=== PATIENT | female | born 1985 | race Hispanic/Latino ===

== ENCOUNTER 2020-01-05 15:29 | Emergency (ER) | payer SELFPAY ==
[2020-01-05] MEDS ORDERED: diphenhydrAMINE 50 MG/ML VIAL ONE (15:59)
[2020-01-05] MEDS ORDERED: Metoclopramide HCl 10 MG/2 ML VIAL ONE (15:59)
[2020-01-05] MEDS ORDERED: Acetaminophen 500 MG TAB ONE (15:59)
--- NOTE | 2020-01-05 16:04 | CT ---
CT HEAD WITHOUT IV CONTRAST COMPARISON: None HISTORY: Level 2 stroke. Headache which started at 11:00 AM. Paresthesias in bilateral hands. TECHNIQUE: Axial CT imaging at 5 mm intervals from vertex through skull base without contrast FINDINGS: There is no evidence of an acute infarction, hemorrhage, mass effect, or midline shift. The ventricul ar system is normal in size, shape, and position. Mucosal thickening is present in each maxillary antrum with mucous retention cyst left maxillary antr um. Visualized mastoid air cells are clear. Osseous structures appear intact. IMPRESSION: 1. No acute intracranial abnormality demonstrated. MRI would be more sensitive study of choice for ev aluation of an acute infarction.
[2020-01-05] MEDS ORDERED: Ondansetron PF 4 MG/2 ML Vial ONE (16:13)
[2020-01-05 17:18] LABS: #Basophils 0.1 thou/uL (0.0-0.2); #Eosinphils 0.1 thou/uL (0.0-0.7); #Lymphocytes 2.7 thou/uL (1.20-3.40); #Monocytes 0.7 thou/uL (0.11-0.59); #Neutrophils 8.7 thou/uL (1.40-6.50); %Basophils 0.6 % (0.0-1.0); %Eosinophils 1.1 % (0.0-10.0); %Lymphocytes 21.7 % (21.0-51.0); %Monocytes 5.3 % (0.0-10.0); %Neutrophils 71.2 % (42.0-75.0); Hemoglobin 13.3 g/dL (12.0-16.0); Mean Corpuscular HGB CONC 33.2 g/dL (32.0-36.0); Mean Corpuscular Hemoglobin 30.7 pg (27.0-31.0); Mean Corpuscular Volume 92.3 fL (78.0-98.0); Mean Platelet Volume 7.4 fL (7.4-10.4); Platelet Count 391 thou/uL (130-400); RBC Distribution Width 11.8 % (11.5-14.5); Red Blood Cell (RBC) Count 4.35 mill/uL (4.20-5.40); White Blood Cell (WBC) Count 12.3 thou/uL (4.8-10.8)
[2020-01-05 17:45] LABS: ALT (SGPT) 18 U/L (8-55); AST (SGOT) 11 U/L (5-34); Albumin 4.2 g/dL (3.5-5.0); Alkaline Phosphatase 77 U/L (40-110); Anion Gap 16 mmol/L (10-20); BUN (Urea Nitrogen) 7 mg/dL (7.0-18.7); Bilirubin, Total 0.5 mg/dL (0.2-1.2); Calc. Creatinine Clearance 0 mL/min (70-130); Calcium 9.7 mg/dL (7.8-10.44); Carbon Dioxide 19 mmol/L (22-29); Chloride 104 mmol/L (98-107); Estimated GFR-MDRD Greater than 90; Globulin 3.3 g/dL (2.4-3.5); Glucose 83 mg/dL (70-105); Potassium 3.4 mmol/L (3.5-5.1); Protein, Total 7.5 g/dL (6.0-8.3); Sodium 136 mmol/L (136-145)
[2020-01-05] MEDS ORDERED: Magnesium 2 GM/50 ML BAG (IN WATER) ONE (18:15)
--- NOTE | 2020-01-05 19:16 | ULT ---
PELVIC ULTRASOUND: History: female with pain. Technique: Multiplanar grayscale and color doppler images were obtained in a transabdominal pelvic ul trasound. Spectral analysis and doppler wave form of the right ovary was performed. FINDINGS: There is a single live intrauterine with heart rate of 162 beats/minute. There is a p ole and yolk sac. [place] rump length is 1.48 cm with estimated gestational age of 7 weeks 6 days. There is a small hyperechoic region adjacent to the gestational sac which likely is a small subchorio eulalio hemorrhage. The right ovary is normal in size and shows normal flow. The left ovary was not visua lized. No free fluid is seen in the pelvis. IMPRESSION: 1. Single live intrauterine with estimated age of 7 weeks 6 days. 2. Possible small subchorionic hemorrhage. POS: EAA
--- NOTE | 2020-01-08 16:18 | EKG ---
Test Reason : Blood Pressure : / mmHG Vent. Rate : 071 BPM Atrial Rate : 075 BPM P-R Int : 000 ms QRS Dur : 084 ms QT Int : 408 ms P-R-T Axes : 000 019 016 degrees QTc Int : 443 ms Normal sinus rhythm Normal ECG Confirmed by TERRA DOOLEY DO ([id number]), medical transcription editor KENDRA EDWARDS ([id number] on 01/08/2020 4:17:45 PM Referred By: Confirmed By:TERRA DOOLEY DO
== END 2020-01-05 19:10 | disposition home or self-care (01) ==
LOC: ERS 15:29
DX: O20.8 Other hemorrhage in early pregnancy (principal); O99.89 Other specified diseases and conditions complicating pregnancy, childbirth and the puerperium; R51 Headache; Z3A.01 Less than 8 weeks gestation of pregnancy
CPT/HCPCS: 36415; 36416; 70450; 76856; 80053; 84702; 85025; 86900; 86901; 93005; 93976; 96365; 96366; 96367; 96375; J1200; J2405; J2765; J3475

== ENCOUNTER 2020-08-04 18:52 | Day surgery (SDC) | payer MEDICAID, OTHER ==
[2020-08-04 19:43] VITALS: BP 139/79; TEMP 98.5; BMI 40.1
[2020-08-04] MEDS ORDERED: hydrALAZINE 20 MG/ML VIAL SLOW IVP PRN (19:52)
--- NOTE | 2020-08-05 02:06 | SS ---
DATE OF ADMISSION: 08/04/2020 DATE OF DISCHARGE: 08/04/2020 Labor and Delivery Triage Note. REGULAR PHYSICIAN: Bk Daily MD. EVALUATING PHYSICIAN: Morales Briscoe MD. CHIEF COMPLAINT: Irregular contractions. HISTORY OF PRESENT ILLNESS: Ms. Tracey is a 34-year-old , G3, P2, with an estimated date of confinement of 08/12/2020, who presents complaining of contractions every 15 minutes since earlier today. She states that she was in Dr. Carranza's office this afternoon and her membranes were stripped by a nurse there in the office in Dr. Carranza's absence. She denies associated ruptured membranes. PAST OBSTETRICAL HISTORY: Two vaginal deliveries, one at 34 weeks and one at 37 weeks. PAST MEDICAL HISTORY: None. PAST SURGICAL HISTORY: None. CURRENT MEDICATIONS: vitamins. ALLERGIES: NO KNOWN ALLERGIES. SOCIAL HISTORY: Denies tobacco, alcohol, or drug use. FAMILY HISTORY: Unremarkable. REVIEW OF SYSTEMS: Denies nausea, vomiting, fever, chills, or ruptured membranes. PHYSICAL EXAMINATION: VITAL SIGNS: In triage, her vital signs are stable. She is afebrile. GENERAL: She is in no distress. ABDOMEN: Soft, nontender, and gravid. PELVIC: Pelvic exam by the labor nurse shows the cervix to be 4 cm dilated, 50% effaced with the vertex high at -3. heart rate tracing is stable with spontaneous accelerations. There are no decelerations. Only an occasional contraction seen. The patient is allowed to walk and returns. At that time, her cervical exam is unchanged. ASSESSMENT: 1. Term intrauterine . 2. No evidence of active labor. PLAN: The patient will be dismissed to home. Labor precautions were reviewed with her in detail. The patient [place] close by in the local area and will return here if her contractions become more frequent. Job ID: [id number] MTDD
== END 2020-08-04 21:20 | disposition home or self-care (01) ==
LOC: L&D/OP 18:52
PROVIDERS: ATTEND Obstetrics & Gynecology
DX: O47.9 False labor, unspecified (principal); Z3A.00 Weeks of gestation of pregnancy not specified
CPT/HCPCS: 99283

== ENCOUNTER 2020-08-05 09:21 | Inpatient (IN) | payer MEDICAID, OTHER ==
[2020-08-05] MEDS ORDERED: hydrALAZINE 20 MG/ML VIAL SLOW IVP PRN ×2 (09:28→16:10)
[2020-08-05] MEDS ORDERED: NS / Oxytocin 40 units/1000ml 1,000 ML IV PRN (09:28)
[2020-08-05] MEDS ORDERED: HYDROcodone/Acetaminophen 5/325 mg Tablet PO PRN ×4 (09:28→16:10)
[2020-08-05] MEDS ORDERED: Lidocaine 1% (PF) 30 ML VIAL SC PRN (09:28)
[2020-08-05] MEDS ORDERED: Docusate 100 MG CAP PO PRN (09:28)
[2020-08-05] MEDS ORDERED: Butorphanol Tartrate 1 MG/ML VIAL SLOW IVP PRN (09:28)
[2020-08-05] MEDS ORDERED: Ondansetron PF 4 MG/2 ML Vial IVP PRN ×2 (09:28→16:10)
[2020-08-05] MEDS ORDERED: Ibuprofen 800 MG TAB PO PRN (09:28)
[2020-08-05] MEDS ORDERED: Promethazine HCl 25 MG/ML VIAL IM PRN (09:28)
[2020-08-05] MEDS ORDERED: Misoprostol 200 MCG TAB PR PRN (09:28)
[2020-08-05] MEDS ORDERED: Acetaminophen 500 MG TAB PO PRN (09:28)
[2020-08-05] MEDS ORDERED: Diphenoxylate HCl/Atropine Tablet PO PRN ×2 (09:28)
[2020-08-05] MEDS ORDERED: Penicillin G 2.5 MILL.units 2.5 MILL.UNITS in Premix Bag 1 BAG IVPB SCH (09:30)
[2020-08-05 10:08] VITALS: BMI 40.6
[2020-08-05] MEDS: Lactated Ringer's 1,000 ML IV SCH ×2 (10:17→19:42)
[2020-08-05] MEDS: Penicillin G Potassium 5 MILL.UNITS in Sodium Chloride 0.9% 100 ML IVPB SCH ×2 (10:17→14:54)
[2020-08-05 10:21] LABS: Hemoglobin 11.3 g/dL (12.0-16.0); Mean Corpuscular HGB CONC 33.8 g/dL (32.0-36.0); Mean Corpuscular Hemoglobin 29.5 pg (27.0-31.0); Mean Corpuscular Volume 87.4 fL (78.0-98.0); Mean Platelet Volume 7.5 fL (7.4-10.4); Platelet Count 253 thou/uL (130-400); RBC Distribution Width 12.3 % (11.5-14.5); Red Blood Cell (RBC) Count 3.81 mill/uL (4.20-5.40); White Blood Cell (WBC) Count 9.2 thou/uL (4.8-10.8)
[2020-08-05 11:04] LABS: HBSAg Index 0.17 S/CO (0-0.99); Hep B Surf Ag Non-Reactive S/CO (NonReactive); Syphilis Antibody Nonreactive (Nonreactive); Syphilis Antibody Index 0.08 S/CO (<1.00 Non-Reactive)
[2020-08-05] MEDS ORDERED: Lanolin Ointment 7 GM TUBE TOP PRN (16:10)
[2020-08-05] MEDS ORDERED: Zolpidem Tartrate 5 MG TAB PO PRN (16:10)
[2020-08-05] MEDS ORDERED: diphenhydrAMINE 25 MG CAP PO PRN (16:10)
[2020-08-05] MEDS ORDERED: Bisacodyl 10 MG SUPP PR PRN (16:10)
[2020-08-05] MEDS ORDERED: Adacel (T-DAP) 0.5 ML SYRINGE IM ONE (16:10)
[2020-08-05] MEDS ORDERED: Benzocaine-Menthol 82.5 ML CAN TOP PRN (16:10)
[2020-08-05] MEDS ORDERED: Misoprostol 200 MCG TAB VAG PRN (16:10)
[2020-08-05] MEDS ORDERED: Milk Of Magnesia 30 ML UDCUP PO PRN (16:10)
[2020-08-05] MEDS ORDERED: Preparation H Ointment 28 GM TUBE PR PRN (16:10)
[2020-08-05] MEDS ORDERED: NS / Oxytocin 40 units/1000ml 1,000 ML IV SCH (16:15)
[2020-08-05] MEDS ORDERED: NS w/ Oxytocin 30 units 500 ML ONE (16:35)
[2020-08-05 18:21] LABS: SARS-CoV-2 MS2 Positive; SARS-CoV-2 N Gene Negative; SARS-CoV-2 S Gene Negative; SARS-CoV-2 by NAA Not Detected (NotDetected); SARS-CoV-2 orf1ab Negative
[2020-08-05] MEDS: Ferrous Sulfate 325 MG TAB PO SCH (19:42)
[2020-08-05] MEDS: Ibuprofen 800 MG TAB PO SCH (20:58)
[2020-08-05] MEDS: Docusate Calcium (SURFAK) 240 MG CAP PO SCH (20:59)
[2020-08-06] MEDS: Ibuprofen 800 MG TAB PO SCH ×2 (05:33→13:07)
[2020-08-06 06:20] LABS: Hemoglobin 10.2 g/dL (12.0-16.0); Mean Corpuscular HGB CONC 33.5 g/dL (32.0-36.0); Mean Corpuscular Hemoglobin 29.4 pg (27.0-31.0); Mean Corpuscular Volume 87.7 fL (78.0-98.0); Mean Platelet Volume 7.5 fL (7.4-10.4); Platelet Count 221 thou/uL (130-400); RBC Distribution Width 12.4 % (11.5-14.5); Red Blood Cell (RBC) Count 3.47 mill/uL (4.20-5.40); White Blood Cell (WBC) Count 10.7 thou/uL (4.8-10.8)
[2020-08-06 08:02] VITALS: BP 114/59; TEMP 98.3
[2020-08-06] MEDS: Ferrous Sulfate 325 MG TAB PO SCH (08:27)
[2020-08-06] MEDS: Docusate Calcium (SURFAK) 240 MG CAP PO SCH (08:40)
[2020-08-06] MEDS ORDERED: Prenatal Vitamin 1 TAB PO SCH (09:00)
--- NOTE | 2020-08-08 05:55 | PQF ---
CLINICAL DOCUMENTATION CLARIFICATION FORM: Dear : Bk Daily Date / Time: 08/08/2020 05:54 Please exercise your independent, professional judgment in responding to the clarification form. Clinical indicators are provided on the bottom of this form for your review Please check appropriate box(es): [ ] Acute blood loss anemia [ ] Post-op anemia related to acute blood loss [ ] Anemia unspecified [ ] Other diagnosis, please specify [ ] Unable to determine Physician Signature: Date/Time: For continuity of documentation, please document condition throughout progress notes and discharge summary. Thank You. To be completed by CDI/Coding staff for physician review: Present Clinical Indicators - Signs / Symptoms / Labs Results and Location in Medical Record [x] Anemia Labor and delivery HP 08/05 [x] BP: 08/0592=608/64 08/0696=976/59 Vital Signs 08/05 [x] RBC: 08/05=3.81 08/06=3.47 Laboratory 08/05 [x] Hgb: 08/05=11.3 08/06=10.2 Laboratory 08/05 [x] Hct: 08/05=33.3 08/06=30.4 Laboratory 08/05 Present Risk Factors Results and Location in Medical Record [x] 39 weeks gestation OB DS 08/05 [x] s/p OB DS 08/05 Present Treatments Results and Location in Medical Record [x] Hematology Monitoring Laboratory 08/05 [x] IVF MAR 08/05 [x] Ferrous Sulfate 325mg Oral OCT 30 CDS/Reliability Technologist Signature: Guille Martinez Phone #: [phone] Date/Time: 08/08/2020 This is a permanent part of the Medical Record [facility]
== END 2020-08-06 17:35 | disposition home or self-care (01) | DRG 807 ==
LOC: L&D/OP 09:21 → L&D 09:37 → 3SE 18:17
PROVIDERS: ADMIT Obstetrics & Gynecology; ATTEND Obstetrics & Gynecology
PROC: 10E0XZZ Delivery of Products of Conception, External Approach (ICD-10-PCS; principal; 2020-08-05)
DX: O99.824 Streptococcus B carrier state complicating childbirth (principal); Z37.0 Single live birth; Z3A.39 39 weeks gestation of pregnancy; Z20.828 Contact with and (suspected) exposure to other viral communicable diseases; O99.02 Anemia complicating childbirth; D64.9 Anemia, unspecified
CPT/HCPCS: 36415; 85027; 86780; 86850; 86900; 86901; 87340; 87635; 99283; J0595; J2540; J2590; J3490; U0003

== ENCOUNTER 2021-11-25 08:38 | Emergency (ER) | payer OTHER ==
[2021-11-25] MEDS ORDERED: Ketorolac Tromethamine 30 MG/ML VIAL ONE ×2 (10:00→10:02)
== END 2021-11-25 10:27 | disposition home or self-care (01) ==
LOC: ERS 08:38
DX: M62.830 Muscle spasm of back (principal); M54.50 Low back pain, unspecified
CPT/HCPCS: 96372; 99283; J1885